=== PATIENT | female | born 1945 | race African-American/Black ===

== ENCOUNTER 2018-10-06 10:15 | Emergency (ER) | payer OTHER, MEDICAID ==
[~2018-10-06] VITALS: Ht 157.5 cm; Wt 100.0 kg
[2018-10-06 10:16] VITALS: BP 166/65
[2018-10-06] MEDS ORDERED: KETOROLAC 60MG/2ML VIAL IM ONE (10:45)
== END 2018-10-06 11:40 | disposition home or self-care (01) ==
LOC: ER 10:15
DX: M25.512 Pain in left shoulder (principal); R06.02 Shortness of breath; I10 Essential (primary) hypertension; V49.69XA Unspecified car occupant injured in collision with other motor vehicles in traffic accident, initial encounter; Y93.89 Activity, other specified; Y92.89 Other specified places as the place of occurrence of the external cause
CPT/HCPCS: 71045; 73030; 99283; J1885; A4565

== ENCOUNTER 2022-09-18 14:24 | Emergency (ER) | payer OTHER, MEDICAID ==
[~2022-09-18] VITALS: Ht 157.5 cm; Wt 118.0 kg
[2022-09-18 14:30] VITALS: BP 211/67
[2022-09-18] MEDS ORDERED: TRIMO LEFTEYE (16:07)
== END 2022-09-18 16:25 | disposition home or self-care (01) ==
LOC: ER 14:24
DX: H10.9 Unspecified conjunctivitis (principal); I10 Essential (primary) hypertension; E78.00 Pure hypercholesterolemia, unspecified; Z98.890 Other specified postprocedural states
CPT/HCPCS: 99281; 99283

== ENCOUNTER 2024-04-05 16:37 | Emergency (ER) | payer OTHER, MEDICAID ==
[~2024-04-05] VITALS: Ht 157.5 cm; Wt 110.0 kg
[~2024-04-05 16:37] MED LIST: TRIMO LEFTEYE
[2024-04-05 16:44] VITALS: O2SAT 98
[2024-04-05 19:25] LABS: CLARITY URINE CLEAR (CLEAR); COLOR URINE YELLOW (YELLOW); SPECIFIC GRAVITY URINE 1.015 (1.005-1.030)
[2024-04-05 19:27] LABS: GLUCOSE URINE NEGATIVE (NEGATIVE); KETONES URINE NEGATIVE (NEGATIVE); OCCULT BLOOD URINE NEGATIVE (NEGATIVE); PROTEIN URINE 1+ (NEGATIVE)
[2024-04-05 19:28] LABS: LEUKOCYTE ESTERASE URINE 3+ (NEGATIVE); NITRITE URINE NEGATIVE (NEGATIVE); UROBILINOGEN URINE 0.2 E.U./dL (0.2-1.0)
[2024-04-05 19:32] LABS: BACTERIA URINE TRACE; SQUAMOUS EPITHELIAL CELL URINE 1+ /lpf (RARE/1+); WBC URINE TNTC /hpf (0-2)
[2024-04-05 20:32] LABS: EOSINOPHILS % 1.5 % (0.0-5.0); HEMATOCRIT. 39.3 % (36.0-48.0); LYMPHOCYTES % 34.4 % (20.0-50.0); MEAN CORPUSCULAR HEMOGLOBIN 29.7 pg (28.0-32.0); MEAN CORPUSCULAR HGB CONC 33.1 g/dL (31.0-37.0); MEAN PLATELET VOLUME 8.4 fl (7.4-10.4); MONOCYTES % 6.5 % (2.0-8.0); NEUTROPHILS % 55.6 % (40.0-76.0); PLATELET 328 x1000/uL (130-400); RED BLOOD CELL COUNT 4.37 mill/uL (4.2-5.4); RED CELL DISTRIBUTION WIDTH 14.7 % (11.6-14.6); WHITE BLOOD COUNT 9.8 x1000/uL (4.5-11.0)
[2024-04-05 20:41] LABS: CHLORIDE 109 mEq/L (98-107); INR 0.9; POTASSIUM 3.6 mEq/L (3.5-5.1); PROTHROMBIN TIME 10.3 sec (9.6-11.0); SODIUM 141 mEq/L (136-145)
[2024-04-05 20:42] LABS: CALCIUM 9.8 mg/dL (8.7-10.4); CARBON DIOXIDE 27 mEq/L (21-32)
[2024-04-05] MEDS ORDERED: CEFTRIAXONE SODIUM 1G VIAL IM ONE (20:45)
[2024-04-05] MEDS ORDERED: ONDANSETRON 4MG ODT PO ONE (20:45)
[2024-04-05] MEDS ORDERED: MAGNESIUM/ALUMINUM HYDROXIDE/SIMETHICONE 30ML UDC PO ONE (20:45)
[2024-04-05 20:47] LABS: CREATININE 0.9 mg/dL (0.6-1.0); GLUCOSE 97 mg/dL (70-105); UREA NITROGEN BLOOD 14 mg/dL (9-23)
[2024-04-05 20:48] LABS: TROPONIN I HIGH SENSITIVITY 8 ng/L (3.0-34)
[2024-04-05] MEDS ORDERED: CEPH500T MT (21:29)
[2024-04-05] MEDS: MAGNESIUM/ALUMINUM HYDROXIDE/SIMETHICONE 30ML UDC PO NR (22:23)
[2024-04-05] MEDS: ONDANSETRON 4MG ODT PO NR (22:23)
[2024-04-05] MEDS: LIDOCAINE HCL 1% 20ML VIAL INFIL ONE (22:37)
[2024-04-05] MEDS: CEFTRIAXONE SODIUM 1G VIAL IM NR (22:37)
[2024-04-05 23:30] VITALS: BP 144/75; PULSE 82; RESP 20; TEMP 36.94740; O2SAT 99
== END 2024-04-05 22:30 | disposition home or self-care (01) ==
LOC: ER 16:37
DX: N39.0 Urinary tract infection, site not specified (principal); I10 Essential (primary) hypertension; Z88.2 Allergy status to sulfonamides
CPT/HCPCS: 99285; 74176; 71045; 80048; 81003; 83690; 85025; 85610; 87086; 84484; 36415; 93005; 96372; Q0162; J0696; J3490